=== PATIENT | male | born 1970 | race Caucasian/White ===

== ENCOUNTER 2020-10-05 16:40 | Emergency (ER) | payer OTHER ==
--- NOTE | 2020-10-05 18:51 | ULT ---
TESTICULAR ULTRASOUND: Indications: Testicular pain FINDINGS: Both testicles exhibit a normal sonographic appearance. No evidence of testicular mass. Both testicle exhibit normal and equal blood flow with color doppler and spectral analysis. Epididymis appears nor mal bilaterally. Small left hydrocele. Increased vascular structures seen in the inguinal regions bilaterally which could represent small bi lateral varicoceles. IMPRESSION: 1. Small left hydrocele. 2. Testicular ultrasound otherwise unremarkable. 3. Evidence of small bilateral varicoceles in the inguinal canals bilaterally. POS: [facility]W
== END 2020-10-05 19:47 | disposition home or self-care (01) ==
LOC: ERS 16:40
DX: S30.22XA Contusion of scrotum and testes, initial encounter (principal); F17.210 Nicotine dependence, cigarettes, uncomplicated; X58.XXXA Exposure to other specified factors, initial encounter
CPT/HCPCS: 76870; 93976